=== PATIENT | female | born 1980 ===

== ENCOUNTER → 2018-05-30 21:20 | Outpatient (REF) | payer BC, SELFPAY ==
[2018-06-03 11:08] LABS: QuantiFERON TB NEGATIVE (Negative)
[2018-06-05 13:44] LABS: Rapid Plasma Reagin NON-REACTIVE
== END ==
LOC: LAB 21:20
PROVIDERS: Visit Provider Family Medicine Adult Medicine
DX: Z00.00 Encounter for general adult medical examination without abnormal findings (principal)
CPT/HCPCS: 86480; 86592; 87591